=== PATIENT | female | born 1990 | race Caucasian/White ===

== ENCOUNTER 2017-01-28 22:00 | Outpatient (CLI) | payer OTHER ==
[~2017-01-28] VITALS: Ht 170.2 cm; Wt 109.9 kg
[~2017-01-28 22:00] MED LIST: FERR-31 PO; PREN-39 PO
[2017-01-28 22:47] VITALS: Ht 170.2 cm; Wt 109.9 kg
[2017-01-28 22:48] VITALS: BP 122/65; PULSE 75; RESP 18
--- NOTE | 2017-01-28 23:07 | PN ---
Triage Information Date/Time 01/28/17, 10:23pm Weeks of Gestation 37 : 5 Para: 4 Diabetes: none Hypertention: none Additional information patient c/o LOF, no VB, no ctx, good FM Objective Heart Rate: 150's Heart Rate Comments Cat I Contractions: None Assessment/Plan 26 yo P2 @ 37 wks, r/o PROM - reassuring status - will send ROM+ - sono to check presentation, placentation, GRACE, EFW (patient stated baby was "big" on last sono) - if not PROM'd, will d/c home PREMA ELLISON MD Jan 28, 2017 22:25
--- NOTE | 2017-01-29 00:55 | RADRPT ---
PROCEDURE: Biophysical profile. CLINICAL INDICATION: Pelvic pain. TECHNIQUE: Multiple sonographic images of the pelvis were obtained with transabdominal technique. COMPARISON: No prior studies are available for comparison. FINDINGS: There is a single living intrauterine gestation with the fetus in a vertex position. The placenta i s posterior in location, grade II. heart tones of 152 beats per minute are identified. There is normal amniotic fluid volume with an GRACE of 10.2 cm. breathing movements = 2 Gross body movements = 2 tone = 2 Qualitative AFV = 2 IMPRESSION: Biophysical profile 8 out of 8. .Gunner Saucedo MD, Date Time Electronically viewed and signed by .Gunner Saucedo MD, on 01/29/2017 00:55 .T/
--- NOTE | 2017-01-29 00:57 | RADRPT ---
PROCEDURE: Obstetrical ultrasound, limited. CLINICAL INDICATION: Pelvic pain. TECHNIQUE: Multiple sonographic images of the pelvis were obtained using transabdominal technique . Images were obtained with deng scale and color Doppler. The images were reviewed on a PACS works tation. COMPARISON: No prior studies are available for comparison. FINDINGS: There is a single living intrauterine gestation with the fetus in a vertex presentation. hear t tones of 126 beats per minute are identified. The placenta is posterior in location, grade 2. Th ere is no evidence of placenta previa or abruption. Measurements were made in order to determine age. The results are as follows: BPD =9.55 cm HC =33.96 cm AC =33.13 cm FL =7.29 cm. Estimated gestational age of approximately 38 weeks and 1 day. The estimated date of delivery is 02/10/2017. The EFW = 3242 +/- 486 grams. Estimated weight percentage equals 68.2%. IMPRESSION: Single viable intrauterine gestation of approximately 38 weeks and 1 day, with an ultrasound MARCO ANTONIO of 02/10/2017. .Gunner Saucedo MD, MD Date Time Electronically viewed and signed by .Gunner Saucedo MD, MD on 01/29/2017 00:56 .T/
--- NOTE | 2017-01-29 07:53 | TRIAGE ---
OB Triage Datetime Report Generated by CPN: 01/29/2017 07:53 Datetime: 01/29/2017 01:00 Stage of : OB Triage Labor Evaluation Frequency: IRREGULAR Monitor Mode: External Duration (sec)2399: 30-60 Quality: Mild Pattern: Normal: <= 5 Contractions in 10 Minutes Resting Tone [place]: Relaxed Heart Rate FHR Baseline Rate: 125 Monitor Mode: External US FHR Baseline Changes: No Baseline Change Variability: Moderate 6-25 bpm Accelerations: 15X15 Decelerations: None Category: Category I Datetime: 01/29/2017 00:00 Stage of : OB Triage Labor Evaluation Frequency: 0 Monitor Mode: External Heart Rate FHR Baseline Rate: 125 Monitor Mode: External US FHR Baseline Changes: No Baseline Change Variability: Moderate 6-25 bpm Accelerations: 15X15 Decelerations: None Category: Category I Vaginal Exam Dilatation (cms): 0.0 Effacement (%): 0 Station: -3 Exam By: Juan FRIEDMAN RN Vaginal Bleeding: None Cervix, Consistency: Firm Cervix, Position: Posterior Datetime: 01/28/2017 23:00 Stage of : OB Triage Labor Evaluation Frequency: 2/HR Monitor Mode: External Duration (sec)2399: 60 Pattern: Normal: <= 5 Contractions in 10 Minutes Interventions: Side to Side Heart Rate FHR Baseline Rate: 135 Monitor Mode: External US FHR Baseline Changes: No Baseline Change Variability: Moderate 6-25 bpm Accelerations: 15X15 Decelerations: Variable Category: Category II Datetime: 01/28/2017 22:00 Stage of : OB Triage Assessment Type: Triage Time of Arrival: 01/28/2017 21:54 Arrived By: Wheelchair Arrived From: Home Chief Complaint: ROM Movement: Present Contractions: Denies/Absent Rupture of Membranes: Denies Vaginal Bleeding: None Vaginal Discharge: Denies Recent Sexual Intercouse: Yes Abdominal Trauma: Not Applicable Patient Complaints: None Time Provider Notified: 01/28/2017 22:05 Provider Notified: SCOT Initial Plan: CALL TATIANA MARS Maternal Assessment Level of Consciousness: Fully Conscious DTR's/Clonus: DTRs 2+; No Clonus Headache: Denies Blurred Vision: No Respiratory Effort: Unlabored; Regular Rhythm; Equal Expansion Breath Sounds, Left: Clear and Equal Breath Sounds, Right: Clear and Equal Nausea/Vomiting: Denies RUQ Epigastric Pain: Denies Lower Extremities Edema: None Degree: None Upper Extremities Edema: None Degree: None Facial Edema: None Temperature Route: Oral Fall Risk Assessment History of Falling: (0) No Secondary Diagnosis: (0) No Ambulatory Aid: (0) Bedrest/Nurse Assist IV Therapy: (0) No Gait: (0) Normal/Bedrest/Immobile Mental Status: (0) Oriented to Own Ability Fall Score: 0 Fall Risk Score Definition: No Risk: No action required Monitor Mode: External Monitor Mode: External US Pain Assessment Pain Scale: 0
== END 2017-01-29 01:37 | disposition home or self-care (01) ==
LOC: OBT 22:00 → L-D 22:04 → OBT 01-29 01:37
PROVIDERS: ATTEND Obstetrics & Gynecology
DX: O41.03X0 Oligohydramnios, third trimester, not applicable or unspecified (principal); Z3A.37 37 weeks gestation of pregnancy
CPT/HCPCS: 76816; 76818; 84112; Z7500; G0463

== ENCOUNTER 2017-02-09 20:25 | Outpatient (CLI) | payer OTHER ==
[~2017-02-09] VITALS: Ht 170.2 cm; Wt 111.4 kg
--- NOTE | 2017-02-09 22:32 | PN ---
Triage Information Date/Time 02/09/17, 10:28pm Weeks of Gestation 38.6 : 5 Para: 4 Diabetes: none Additional information patient fell yesterday on a wet floor. Hit her abdomen good FM, no VB, no LOF, no ctx Objective 133/61, 66, 16, 98.2 Heart Rate: 120's Heart Rate Comments Cat I Contractions: None Assessment/Plan 26 yo P 4 @ 38.6 wks, who fell on her abdomen yesteray. No ctx or VB - reassuring status - sono to be performed; if nml and no si placental abruption, d/c home - tylenol prn pain PREMA ELLISON MD Feb 09, 2017 22:31
--- NOTE | 2017-02-09 23:38 | RADRPT ---
PROCEDURE: Biophysical profile. CLINICAL INDICATION: Pelvic pain. TECHNIQUE: Multiple sonographic images of the pelvis were obtained with transabdominal technique. COMPARISON: 01/28/2017. FINDINGS: There is a single living intrauterine gestation with the fetus in a vertex position. The placenta i s fundal in location, grade 3. heart tones of 152 beats per minute are identified. There is n ormal amniotic fluid volume with an GRACE of 9.6 cm. breathing movements = 2 Gross body movements = 2 tone = 2 Qualitative AFV = 2 IMPRESSION: Biophysical profile 8 out of 8. .Gunner Saucedo MD, MD Date Time Electronically viewed and signed by .Gunner Saucedo MD, MD on 02/09/2017 23:38 .T/
[2017-02-09 23:50] VITALS: Ht 170.2 cm; Wt 111.4 kg
[2017-02-09 23:51] VITALS: BP 133/61; PULSE 66; RESP 16
--- NOTE | 2017-02-10 00:20 | TRIAGE ---
OB Triage Datetime Report Generated by CPN: 02/10/2017 00:19 Datetime: 02/09/2017 22:18 Stage of : OB Triage Datetime: 02/09/2017 20:46 Time of Arrival: 02/09/2017 20:30 EGA: 38.6 Arrived By: Wheelchair Arrived From: Home Chief Complaint: pelvic and back pain Movement: Present Contractions: Denies/Absent Rupture of Membranes: Denies Vaginal Bleeding: None Vaginal Discharge: Denies Recent Sexual Intercouse: Denies Abdominal Trauma: Fall Patient Complaints: Back Pain; Other Additional Patient Complaints: pelvic and back pain post fall on wooden floor 24 hours ago Time Provider Notified: 02/09/2017 20:30 Provider Notified: Soriano Datetime: 02/09/2017 20:43 Stage of : OB Triage Maternal Assessment Level of Consciousness: Fully Conscious DTR's/Clonus: DTRs 2+; No Clonus Headache: Denies Blurred Vision: No Respiratory Effort: Unlabored; Regular Rhythm Breath Sounds, Left: Clear and Equal Breath Sounds, Right: Clear and Equal Nausea/Vomiting: Denies RUQ Epigastric Pain: Denies Lower Extremities Edema: Bilateral Lower Extremities Degree: 1+ Upper Extremities Edema: None Degree: None Facial Edema: None Temperature Route: Oral Fall Risk Assessment History of Falling: (25) Yes Secondary Diagnosis: (0) No Ambulatory Aid: (0) Bedrest/Nurse Assist IV Therapy: (0) No Gait: (0) Normal/Bedrest/Immobile Mental Status: (0) Oriented to Own Ability Fall Score: 25 Fall Risk Score Definition: Low Risk: Please see standard fall prevention interventions Pain Assessment Pain Scale: 7 Pain Presence: Constant Pain Type: Sharp Pain Location: Abdomen; Back Pain Goal: 0 Pain Relief Measures: Comfort Measures Pain Assessment Comments: patient states she has been feeling more and more sore since she fell on a wooden floor 24 hours ago Datetime: 02/09/2017 20:41 Stage of : OB Triage Datetime: 01/29/2017 01:34 Arrived By: Ambulatory Arrived From: Home Movement: Present Contractions: Denies/Absent Rupture of Membranes: Denies Vaginal Bleeding: None Vaginal Discharge: Denies Recent Sexual Intercouse: Denies Abdominal Trauma: Not Applicable Patient Complaints: Back Pain; Other Provider Notified: Soriano Datetime: 01/28/2017 22:00 Fall Score: 0 Fall Risk Score Definition: No Risk: No action required
== END 2017-02-10 00:12 | disposition home or self-care (01) ==
LOC: L-D 20:25 → OBT 20:25
PROVIDERS: ATTEND Obstetrics & Gynecology
DX: O9A.213 Injury, poisoning and certain other consequences of external causes complicating pregnancy, third trimester (principal); S39.91XA Unspecified injury of abdomen, initial encounter; Z3A.38 38 weeks gestation of pregnancy; W01.0XXA Fall on same level from slipping, tripping and stumbling without subsequent striking against object, initial encounter
CPT/HCPCS: 76818; Z7500; G0463

== ENCOUNTER 2017-02-10 18:39 | Outpatient (CLI) | payer OTHER ==
[~2017-02-10] VITALS: Ht 170.2 cm; Wt 110.2 kg
[2017-02-10 19:44] VITALS: Ht 170.2 cm; Wt 110.2 kg
[2017-02-10 19:45] VITALS: BP 127/65; PULSE 86; RESP 18
--- NOTE | 2017-02-10 23:07 | RADRPT ---
PROCEDURE: US OB. CLINICAL INDICATION: Macrosomia. TECHNIQUE: Multiple sonographic images of the pelvis were obtained. Transabdominal imaging only w as performed. The images were reviewed on a PACS workstation. COMPARISON: 02/09/2017. FINDINGS: Single live intrauterine is identified. Cardiac activity is present with 137 beats per mi nute. There is a vertex presentation. Measurements: BPD = 39 weeks 1 day. HC = 39 weeks 2 days. AC = 40 weeks 2 days. FL = 40 weeks 0 days. Estimated gestational age of approximately 39 weeks 5 days. The EFW = 3930 g which is at the 87th percentile. The placenta is fundal and posterior. IMPRESSION: Single live intrauterine gestation of approximately 39 weeks 5 days. weight is at the 87th pe rcentile at a pounds 11 ounces. RPTAT: [facility]VK .Otoniel Goss MD, Date Time Electronically viewed and signed by .Otoniel Goss MD, on 02/10/2017 23:06 .K/
--- NOTE | 2017-02-10 23:22 | QN ---
Documentation Comment iup 39 weeks r/o macrasomia vss exam wnl nst reactive us pending a/p iup 39 weeks macrasomia return to triage for eval in am per own obgyn PIPER NARAYANAN MD Feb 10, 2017 23:22
--- NOTE | 2017-02-10 23:44 | TRIAGE ---
OB Triage Datetime Report Generated by CPN: 02/10/2017 23:44 Datetime: 02/10/2017 22:31 Stage of : OB Triage Datetime: 02/10/2017 22:29 Monitor Mode: External US Datetime: 02/10/2017 22:00 Stage of : OB Triage Labor Evaluation Frequency: X4 Monitor Mode: External Duration (sec)2399: 40-70 Quality: Mild Pattern: Normal: <= 5 Contractions in 10 Minutes Resting Tone [place]: Relaxed Contraction Comments: Pt denies Heart Rate FHR Baseline Rate: 125 Monitor Mode: External US FHR Baseline Changes: No Baseline Change Variability: Moderate 6-25 bpm Accelerations: 15X15 Decelerations: None Category: Category I Datetime: 02/10/2017 21:00 Stage of : OB Triage Labor Evaluation Frequency: None Monitor Mode: External Heart Rate FHR Baseline Rate: 125 Monitor Mode: External US FHR Baseline Changes: No Baseline Change Variability: Moderate 6-25 bpm Accelerations: 15X15 Decelerations: None Category: Category I Datetime: 02/10/2017 20:05 Stage of : OB Triage Datetime: 02/10/2017 20:01 Vaginal Exam Dilatation (cms): 0.5 Effacement (%): 50 Station: -3 Exam By: Wendy Jensen RN Vaginal Bleeding: None Cervix, Consistency: Soft Cervix, Position: Posterior Datetime: 02/10/2017 20:00 Stage of : OB Triage Labor Evaluation Frequency: X2 Monitor Mode: External Duration (sec)2399: 60-70 Quality: Mild Pattern: Normal: <= 5 Contractions in 10 Minutes Resting Tone [place]: Relaxed Contraction Comments: Pt denies Heart Rate FHR Baseline Rate: 125 Monitor Mode: External US FHR Baseline Changes: No Baseline Change Variability: Moderate 6-25 bpm Accelerations: 15X15 Decelerations: None Category: Category I Datetime: 02/10/2017 19:30 Time of Arrival: 02/10/2017 18:35 EGA: 39.5 Arrived By: Ambulatory Arrived From: Home Chief Complaint: Macrosomia, eval. for IOL (Annotations: Data stored by CPN on behalf of user) Movement: Present Contractions: Denies/Absent Rupture of Membranes: Denies Vaginal Discharge: Denies Recent Sexual Intercouse: Denies Abdominal Trauma: Not Applicable Patient Complaints: Other Time Provider Notified: 02/10/2017 20:05 Provider Notified: Dr Monzon Initial Plan: EFM X2, EFW. Datetime: 02/10/2017 19:26 Assessment Type: Triage Maternal Assessment Level of Consciousness: Fully Conscious DTR's/Clonus: DTRs 2+; No Clonus Headache: Denies Blurred Vision: No Respiratory Effort: Unlabored; Regular Rhythm; Equal Expansion Breath Sounds, Left: Clear and Equal Breath Sounds, Right: Clear and Equal Nausea/Vomiting: Denies RUQ Epigastric Pain: Denies Lower Extremities Edema: None Degree: None Upper Extremities Edema: None Degree: None Facial Edema: None Fall Risk Assessment History of Falling: (0) No Secondary Diagnosis: (0) No Ambulatory Aid: (0) Bedrest/Nurse Assist IV Therapy: (0) No Gait: (0) Normal/Bedrest/Immobile Mental Status: (0) Oriented to Own Ability Fall Score: 0 Fall Risk Score Definition: No Risk: No action required Datetime: 02/10/2017 19:24 Monitor Mode: External Contraction Comments: Applied Datetime: 02/10/2017 19:21 Monitor Mode: External US Comments: Applied Datetime: 02/10/2017 00:00 Stage of : OB Triage Maternal Assessment Level of Consciousness: Fully Conscious Headache: Denies Labor Evaluation Frequency: 3-15 Monitor Mode: External Duration (sec)2399: 30-70 Quality: Mild Pattern: Normal: <= 5 Contractions in 10 Minutes Resting Tone [place]: Relaxed Contraction Comments: patient denies feeling UCs Heart Rate FHR Baseline Rate: 120 Monitor Mode: External US FHR Baseline Changes: No Baseline Change Variability: Moderate 6-25 bpm Accelerations: 15X15 Decelerations: None Category: Category I Datetime: 02/09/2017 23:00 Stage of : OB Triage Maternal Assessment Level of Consciousness: Fully Conscious Labor Evaluation Frequency: Irregular Monitor Mode: External Duration (sec)2399: 40-70 Quality: Mild Pattern: Normal: <= 5 Contractions in 10 Minutes Resting Tone [place]: Relaxed Heart Rate FHR Baseline Rate: 125 Monitor Mode: External US FHR Baseline Changes: No Baseline Change Variability: Moderate 6-25 bpm Accelerations: Prolonged Decelerations: None Category: Category I Pain Assessment Pain Scale: 3 Pain Presence: Constant Pain Type: Sharp Pain Location: Abdomen; Back Pain Goal: 0 Pain Relief Measures: Comfort Measures Pain Assessment Comments: patient states that her pain is improving Datetime: 02/09/2017 22:00 Stage of : OB Triage Maternal Assessment Level of Consciousness: Fully Conscious Labor Evaluation Frequency: Irregular Monitor Mode: External Duration (sec)2399: 40-80 Quality: Mild Pattern: Normal: <= 5 Contractions in 10 Minutes Resting Tone [place]: Relaxed Heart Rate FHR Baseline Rate: 135 Monitor Mode: External US FHR Baseline Changes: No Baseline Change Variability: Moderate 6-25 bpm Accelerations: Prolonged Decelerations: None Category: Category I Datetime: 02/09/2017 21:00 Stage of : OB Triage Maternal Assessment Level of Consciousness: Fully Conscious Headache: Denies Labor Evaluation Frequency: Irregular Monitor Mode: External Duration (sec)2399: 30-60 Quality: Mild Pattern: Normal: <= 5 Contractions in 10 Minutes Resting Tone [place]: Relaxed Contraction Comments: patient denies feeling UCs Heart Rate FHR Baseline Rate: 140 Monitor Mode: External US Variability: Moderate 6-25 bpm Accelerations: 15X15 Decelerations: None Category: Category I Pain Assessment Pain Scale: 7 Pain Presence: Constant Pain Type: Sharp Pain Location: Abdomen Pain Goal: 0 Pain Relief Measures: Comfort Measures Datetime: 02/09/2017 20:46 EGA: 39.4 Datetime: 02/09/2017 20:43 Fall Score: 25 Fall Risk Score Definition: Low Risk: Please see standard fall prevention interventions Datetime: 01/28/2017 22:00 Fall Score: 0 Fall Risk Score Definition: No Risk: No action required
== END 2017-02-10 22:46 | disposition home or self-care (01) ==
LOC: OBT 18:39 → L-D 18:40 → OBT 22:46
PROVIDERS: ATTEND Obstetrics & Gynecology
DX: O36.63X0 Maternal care for excessive fetal growth, third trimester, not applicable or unspecified (principal); Z3A.39 39 weeks gestation of pregnancy
CPT/HCPCS: 76815

== ENCOUNTER 2017-02-11 12:18 | Inpatient (IN) | payer OTHER ==
[~2017-02-11] VITALS: Ht 170.2 cm; Wt 110.4 kg
[2017-02-11 12:28] VITALS: BP 139/62; PULSE 82; RESP 17; Ht 170.2 cm; Wt 110.4 kg
[2017-02-11 15:13] LABS: BASOPHILS % 0.1 % (0.0-2.0); EOSINOPHILS # 0.1 10^3/ul (0.0-0.5); EOSINOPHILS % 1.4 % (0.0-7.0); HEMATOCRIT 29.5 % (37.0-47.0); HEMOGLOBIN 9.6 g/dl (12.0-16.0); LYMPHOCYTES # 1.3 10^3/ul (0.8-2.9); LYMPHOCYTES % 16.1 % (15.0-51.0); MEAN CORPUSCULAR HEMOGLOBIN 26.6 pg (29.0-33.0); MEAN CORPUSCULAR HGB CONC 32.5 g/dl (32.0-37.0); MEAN CORPUSCULAR VOLUME 81.7 fl (82.0-101.0); MEAN PLATELET VOLUME 12.4 fl (7.4-10.4); MONOCYTE # 0.7 10^3/ul (0.3-0.9); MONOCYTES % 8.9 % (0.0-11.0); NEUTROPHIL # 5.9 10^3/ul (1.6-7.5); NEUTROPHILS % 73.1 % (39.0-77.0); PLATELET COUNT 220 10^3/UL (140-415); RED BLOOD COUNT 3.61 10^6/ul (4.20-5.40); RED CELL DISTRIBUTION WIDTH 13.6 % (11.5-14.5); WHITE BLOOD COUNT 8.1 10^3/ul (4.8-10.8)
[2017-02-11 15:17] LABS: ADD SCAN DIFF NO
[2017-02-11 15:18] LABS: ADD UMIC YES; UR ASCORBIC ACID NEGATIVE (NEGATIVE); UR BILIRUBIN (Dip) NEGATIVE (NEGATIVE); UR BLOOD (Dip) NEGATIVE (NEGATIVE); UR CLARITY CLEAR (CLEAR); UR COLOR YELLOW (YELLOW); UR GLUCOSE (Dip) NEGATIVE (NEGATIVE); UR KETONES (Dip) NEGATIVE (NEGATIVE); UR LEUKOCYTE ESTERASE (Dip) NEGATIVE Leu/ul (NEGATIVE); UR NITRITE (Dip) NEGATIVE (NEGATIVE); UR RBC 1 /HPF (0-5); UR SPECIFIC GRAVITY (Dip) 1.025 (1.003-1.030); UR TOTAL PROTEIN (Dip) 1+ mg/dl (NEGATIVE); UR UROBILINOGEN (Dip) NEGATIVE (NEGATIVE)
[2017-02-11 15:28] LABS: INR 0.9; PROTIME 12.1 Sec (12.2-14.2); PT RATIO 0.9
[2017-02-11 15:29] LABS: PARTIAL THROMBOPLASTIN TIME 27.1 Sec (25.0-35.0)
--- NOTE | 2017-02-11 15:48 | RADRPT ---
PROCEDURE: OB ultrasound for biophysical profile CLINICAL INDICATION: Macrosomia TECHNIQUE: Multiple sonographic images of the pelvis were obtained. Transabdominal views of the g ravid uterus are available for review. The images were reviewed on a PACS workstation. COMPARISON: Biophysical profile dated 02/09/2017 FINDINGS: breathing movement = 2/2 tone = 2/2 motion = 2/2 GRACE = 2/2 GRACE = 14.7 cm Single live intrauterine with cardiac activity of 134 bpm. position is cephal ic. The placenta is posterior. IMPRESSION: 1. Single live intrauterine gestation. 2. Biophysical profile = 03/21. 3. GRACE = 14.7 cm. RPTAT: HH .Regla Alvarez MD, Date Time Electronically viewed and signed by .Regla Alvarez MD, on 02/11/2017 15:47 .G/
[2017-02-11 15:50] LABS: ALBUMIN/GLOBULIN RATIO 1.33; BILIRUBIN,INDIRECT 0.2 mg/dl (0-1.1); BILIRUBIN,TOTAL 0.2 mg/dl (0.2-1.3); CALCIUM 9.2 mg/dl (8.4-10.2); CREATININE 0.57 mg/dl (0.44-1.00); POTASSIUM 4.1 mmol/L (3.5-5.1); URIC ACID 5.3 mg/dl (3.1-7.9)
[2017-02-11] MEDS ORDERED: LIDOCAINE 1% (MPF) 30 ML INJ INJ PRN (19:30)
[2017-02-11] MEDS ORDERED: IBUPROFEN 600 MG TAB PO PRN (19:30)
[2017-02-11] MEDS ORDERED: OXYTOCIN 30 UNITS/LR 500 ML IV SCH ×2 (19:30)
[2017-02-11] MEDS ORDERED: METHYLERGONOVINE 0.2 MG INJ IM PRN (19:30)
[2017-02-11] MEDS ORDERED: ACETAMINOPHEN/CODEINE #3 TAB PO PRN (19:30)
[2017-02-11] MEDS ORDERED: BUTORPHANOL 2 MG INJ IV PRN (19:30)
[2017-02-11] MEDS ORDERED: CARBOPROST 250 MCG INJ IM PRN (19:30)
[2017-02-11] MEDS ORDERED: OXYTOCIN 30 UNITS/LR 500 ML IV PRN (19:30)
[2017-02-11] MEDS ORDERED: MISOPROSTOL 200 MCG TAB PR PRN (19:30)
[2017-02-11] MEDS: LACTATED RINGER'S 1,000 ML IV SCH (20:33)
[2017-02-11] MEDS ORDERED: LACTATED RINGER'S 1,000 ML IV PRN (21:00)
--- NOTE | 2017-02-11 21:02 | HP ---
Date/Time of Note Date/Time of Note DATE: 02/11/17 TIME: 20:48 OB - History Hx of Present Free Text/Dictation 26y/o g/5 p /4 EDC February 12/2017 admitted to [facility] l&d via triage for induction of labor to avid macrosomia ,pelvic exam on admission cx1cm 60%vertex at -2 station contraction 4 to 7 minutes mild to moderate in intensity fht category 1 Estimated Due Date: Feb 12, 2017 : 5 Para: 4 Care: Good Care Ultrasounds: Normal mid trimester US Obstetrical Complications: None Medical Complications: None Past Family/Social History * Past Medical, Surgical, Family and Obstetric Histories reviewed from chart. Rubella: immune RPR/VDRL: Negative GBS Status: Negative HBsAG: Negative OB Admission Exam Vital Signs Vital Signs Vital Signs Date Time Temp Pulse Resp B/P Pulse Ox O2 Delivery O2 Flow Rate FiO2 02/11/17 12:28 97.7 82 17 139/62 Room Air Physical Exam HEENT: WNL Heart: Rhythm Normal Lungs: Clear, Equal Abdomen: WNL Extremities: Normal Reflexes: Normal Cervical Dilatation: 1cm Effacement: 50% Station: -2 Membranes: Intact Heart Rate: 130's Accelerations: Accelerations Present Decelerations: No Decelerations Varibility: Marked Contractions on Admission: >10 Minutes Apart Last 72 hours Lab Results CBC & BMP 02/11/17 14:54 Liver Function Test 02/11/17 14:54 Alanine Aminotransferase (ALT/SGPT) 25 Albumin 4.0 Alkaline Phosphatase 200 H Aspartate Amino Transf (AST/SGOT) 19 Direct Bilirubin 0.00 Total Protein 7.0 OB Assessment/Plan Plan: Expectant Management INÉS PANDYA MD Feb 11, 2017 20:59
[2017-02-11 21:05] LABS: BASOPHILS % 0.2 % (0.0-2.0); EOSINOPHILS # 0.1 10^3/ul (0.0-0.5); EOSINOPHILS % 1.4 % (0.0-7.0); HEMOGLOBIN 9.7 g/dl (12.0-16.0); LYMPHOCYTES # 1.7 10^3/ul (0.8-2.9); LYMPHOCYTES % 19.3 % (15.0-51.0); MEAN CORPUSCULAR HEMOGLOBIN 27.3 pg (29.0-33.0); MEAN CORPUSCULAR HGB CONC 33.4 g/dl (32.0-37.0); MEAN CORPUSCULAR VOLUME 81.7 fl (82.0-101.0); MEAN PLATELET VOLUME 12.5 fl (7.4-10.4); MONOCYTE # 0.6 10^3/ul (0.3-0.9); MONOCYTES % 6.8 % (0.0-11.0); NEUTROPHIL # 6.2 10^3/ul (1.6-7.5); NEUTROPHILS % 71.9 % (39.0-77.0); PLATELET COUNT 210 10^3/UL (140-415); RED BLOOD COUNT 3.55 10^6/ul (4.20-5.40); RED CELL DISTRIBUTION WIDTH 13.3 % (11.5-14.5); WHITE BLOOD COUNT 8.6 10^3/ul (4.8-10.8)
[2017-02-11 21:07] LABS: ADD SCAN DIFF NO
[2017-02-11 21:22] LABS: INR 0.88; PARTIAL THROMBOPLASTIN TIME 27.6 Sec (25.0-35.0); PROTIME 11.9 Sec (12.2-14.2); PT RATIO 0.9
[2017-02-12] MEDS ORDERED: FENTAnyl 2MCG/ML-ROPIV 0.2% 100 ML ONE (02:28)
[2017-02-12] MEDS: LACTATED RINGER'S 1,000 ML IV SCH ×3 (02:43→18:00)
[2017-02-12] MEDS ORDERED: OXYTOCIN 30 UNITS/LR 500 ML IV SCH ×2 (09:00→13:55)
[2017-02-12] MEDS ORDERED: ONDANSETRON 4 MG INJ IV PRN ×3 (09:30→14:00)
--- NOTE | 2017-02-12 12:19 | LDN ---
Date/Time of Note Date/Time of Note DATE: 02/12/17 TIME: 12:17 Delivery Summary Normal spontaneous vaginal delivery of a baby boy from OA position shoulders delivered without any difficulty rest of the baby's body follow placenta spontaneous expulsion inspected complete vaginal perineal inspection no laceration estimated blood loss 250 cc Placenta Delivered: Spontaneously Meconium: Light Episiotomy: No Laceration repair: None Anesthesia type: Epidural Sponge & Needle done & correct: Yes All needle counts correct: Yes Any foreign bodies felt in the: No Problems: INÉS PANDYA MD Feb 12, 2017 12:19
[2017-02-12 13:55] VITALS: BP 122/63; PULSE 64; RESP 18
[2017-02-12] MEDS ORDERED: WITCH HAZEL/GLYCERIN PAD PR PRN ×2 (14:00)
[2017-02-12] MEDS ORDERED: BENZOCAINE 20% 56 ML SPRAY TOP PRN ×2 (14:00)
[2017-02-12] MEDS ORDERED: LANOLIN 7 GM TUBE TOP PRN ×2 (14:00)
[2017-02-12] MEDS: IBUPROFEN 600 MG TAB PO SCH ×2 (14:00→18:07)
[2017-02-12] MEDS ORDERED: OXYCODONE/ASPIRIN (4.88/325) TAB PO PRN ×4 (14:00)
[2017-02-12] MEDS ORDERED: ACETAMINOPHEN/CODEINE #3 TAB PO PRN ×4 (14:00)
[2017-02-12] MEDS ORDERED: DIBUCAINE 1% 30 GM OINT PR PRN ×2 (14:00)
[2017-02-12] MEDS ORDERED: ACETAMINOPHEN 325 MG TAB PO PRN ×2 (14:00)
[2017-02-12 15:15] VITALS: BP 117/60; PULSE 63; RESP 18
[2017-02-12 15:45] VITALS: BP 119/50; PULSE 66; RESP 16
[2017-02-12] MEDS: OXYTOCIN 30 UNITS/LR 500 ML IV SCH ×2 (16:12→20:10)
[2017-02-12] MEDS ORDERED: CARBOPROST 250 MCG INJ IM PRN (18:00)
[2017-02-12] MEDS ORDERED: METHYLERGONOVINE 0.2 MG INJ IM PRN (18:00)
[2017-02-12] MEDS ORDERED: OXYTOCIN 30 UNITS/LR 500 ML IV PRN (18:00)
[2017-02-12] MEDS ORDERED: MISOPROSTOL 200 MCG TAB PR PRN (18:00)
[2017-02-12] MEDS ORDERED: IBUPROFEN 600 MG TAB PO SCH (18:00)
[2017-02-12 19:45] VITALS: BP 135/74; PULSE 68; RESP 18
[2017-02-12] MEDS ORDERED: SENNA/DOCUSATE NA (8.6MG/50MG) TAB PO SCH (21:00)
[2017-02-12] MEDS: SENNA/DOCUSATE NA (8.6MG/50MG) TAB PO SCH (22:10)
[2017-02-13] MEDS: IBUPROFEN 600 MG TAB PO SCH ×5 (00:27→23:28)
[2017-02-13] MEDS: LACTATED RINGER'S 1,000 ML IV SCH ×3 (00:27→17:01)
[2017-02-13 00:30] VITALS: BP 128/76; PULSE 65; RESP 18
[2017-02-13 03:54] VITALS: BP 116/66; PULSE 63; RESP 18
[2017-02-13 07:10] LABS: BASOPHILS % 0.2 % (0.0-2.0); EOSINOPHILS # 0.1 10^3/ul (0.0-0.5); EOSINOPHILS % 1.7 % (0.0-7.0); HEMATOCRIT 27.8 % (37.0-47.0); HEMOGLOBIN 8.9 g/dl (12.0-16.0); LYMPHOCYTES # 1.9 10^3/ul (0.8-2.9); LYMPHOCYTES % 22.6 % (15.0-51.0); MEAN CORPUSCULAR HEMOGLOBIN 26.5 pg (29.0-33.0); MEAN CORPUSCULAR VOLUME 82.7 fl (82.0-101.0); MEAN PLATELET VOLUME 12.7 fl (7.4-10.4); MONOCYTE # 0.8 10^3/ul (0.3-0.9); MONOCYTES % 9.4 % (0.0-11.0); NEUTROPHIL # 5.4 10^3/ul (1.6-7.5); NEUTROPHILS % 65.6 % (39.0-77.0); PLATELET COUNT 178 10^3/UL (140-415); RED BLOOD COUNT 3.36 10^6/ul (4.20-5.40); RED CELL DISTRIBUTION WIDTH 13.5 % (11.5-14.5); WHITE BLOOD COUNT 8.2 10^3/ul (4.8-10.8)
[2017-02-13 08:15] VITALS: BP 124/57; PULSE 61; RESP 19
[2017-02-13] MEDS: SENNA/DOCUSATE NA (8.6MG/50MG) TAB PO SCH ×2 (09:30→21:51)
[2017-02-13 11:30] VITALS: BP 121/60; PULSE 66; RESP 18
[2017-02-13 16:00] VITALS: BP 128/71; PULSE 57; RESP 20
--- NOTE | 2017-02-13 18:28 | QN ---
Documentation Comment ppd1 pt doing well vss exam wnl a/p ppd1 pt doing well continue care PIPER NARAYANAN MD Feb 13, 2017 18:28
[2017-02-13 20:00] VITALS: BP 132/70; PULSE 57; RESP 19
[2017-02-14 04:00] VITALS: BP 120/54; PULSE 61; RESP 18
[2017-02-14] MEDS: IBUPROFEN 600 MG TAB PO SCH ×2 (05:55→12:05)
[2017-02-14 08:35] VITALS: BP 130/75; PULSE 65; RESP 18
[2017-02-14] MEDS ORDERED: MEASLES,MUMPS,RUBELLA VACCINE INJ SC* ONE ×2 (09:00)
[2017-02-14] MEDS: SENNA/DOCUSATE NA (8.6MG/50MG) TAB PO SCH (09:42)
--- NOTE | 2017-02-14 13:13 | DS ---
Date/Time of Note Date/Time of Note DATE: 02/14/17 TIME: 13:11 Discharge Summary Admission/Discharge Info Admit Date/Time Feb 11, 2017 at 18:40 Discharge Date/Time February 14, 2017 Discharge Diagnosis Day 2 post normal vaginal delivery Patient Condition: Good Procedures Normal vaginal delivery Hx of Present Illness Term in labor Hospital Course Satisfactory uneventful Home Meds Reported Medications Ferrous Sulfate (Iron Supplement) 1 Tab Tablet, 1 TAB PO DAILY 04/22/15 Vits W-Ca,Fe,Fa(<1MG) ( Vitamins) 1 Tab Tablet, 1 TAB PO 04/16/15 Follow-up Plan Appointment clinic in 2 weeks for check Primary Care Provider [facility] Time spent on discharge: < 30 minutes INÉS PANDYA MD Feb 14, 2017 13:12
--- NOTE | 2017-02-14 13:14 | PD.PPDC ---
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 Patient Condition: Good Diet Diet: Resume Regular Diet Activity/Restrictions Activity: Normal Activity May Shower Restrictions: No Exercising No Lifting No Driving No Sexual Activity Nothing in the Vagina No [place] No Tampons, douche Follow-up Follow-up with Physician: 2, Week/Weeks Provider Information: Appointment clinic in 2 weeks for check Return to clinic for [employer] Instructions: Fever greater than 101 Chills Worsening abdominal pain Excessive Vaginal Bleeding More than 2 pads per hour Unable to tolerate diet OB Instructions: Breast Tenderness Depression Blurried Vision Headache Surgical Instructions: Incisional Drainage Incisional Redness INÉS PANDYA MD Feb 14, 2017 13:14
--- NOTE | 2017-02-14 13:15 | DS ---
Date/Time of Note Date/Time of Note DATE: 02/14/17 TIME: 13:14 Discharge Summary Admission/Discharge Info Admit Date/Time Feb 11, 2017 at 18:40 Discharge Date/Time Discharge Diagnosis Day 2 post normal vaginal delivery Patient Condition: Good Hx of Present Illness Term in labor Hospital Course Satisfactory uneventful Home Meds Reported Medications Ferrous Sulfate (Iron Supplement) 1 Tab Tablet, 1 TAB PO DAILY 04/22/15 Vits W-Ca,Fe,Fa(<1MG) ( Vitamins) 1 Tab Tablet, 1 TAB PO 04/16/15 Primary Care Provider [facility] INÉS PANDYA MD Feb 14, 2017 13:15
== END 2017-02-14 18:50 | disposition home or self-care (01) | DRG 775 ==
LOC: L-D 12:18 → OBT 12:18 → L-D 18:40 → OBT 18:40 → PP1 02-12 14:05
PROVIDERS: ADMIT Obstetrics & Gynecology; ATTEND Obstetrics & Gynecology
PROC: 10E0XZZ Delivery of Products of Conception, External Approach (ICD-10-PCS; principal; 2017-02-11)
DX: O80 Encounter for full-term uncomplicated delivery (principal); Z37.0 Single live birth; Z3A.00 Weeks of gestation of pregnancy not specified
CPT/HCPCS: 62319; 76818; 80053; 81001; 84560; 85025; 85610; 85730; 86592; 86900; 86901; 87340; G0463; J2405; J2590; J3010; J7120